=== PATIENT | male | born 1995 | race Caucasian/White ===

== ENCOUNTER 2020-08-17 22:45 | Emergency (ER) | payer OTHER ==
[~2020-08-17 22:45] MED LIST: IBUPROFEN600 MG PO
== END 2020-08-18 01:25 | disposition home or self-care (01) ==
LOC: ER1 22:45
DX: J06.9 Acute upper respiratory infection, unspecified (principal); J40 Bronchitis, not specified as acute or chronic; F17.210 Nicotine dependence, cigarettes, uncomplicated; Z20.822 Contact with and (suspected) exposure to COVID-19
CPT/HCPCS: 0240U; 71045; 99285